=== PATIENT | male | born 1970 | race African-American/Black ===

== ENCOUNTER 2018-09-04 08:35 | Day surgery (SDC) | payer OTHER ==
[~2018-09-04] VITALS: Ht 167.6 cm; Wt 100.0 kg
[~2018-09-04 08:35] MED LIST: FLEXERIL10 MG PO; HCTZ; HCTZ 25MG TAB25 MG PO; LIPITOR 80MG80 MG PO; LOPRESSOR 225 MG/TAB PO; LORTAB 5/500 501 TAB PO; NAPROSYN500 MG PO; PLAVIX 75MG TAB75 MG PO; ZESTRIL40 MG PO
[2018-09-04 09:03] VITALS: BP 128/90; PULSE 80; TEMP 97.8
[2018-09-04] MEDS ORDERED: WELLBUTRIN XL150 MG PO (09:09)
[2018-09-04] MEDS ORDERED: LEXAPRO 5MG5 MG PO (09:10)
[2018-09-04 09:42] VITALS: BP 119/89; PULSE 76; TEMP 98.3
[2018-09-04 09:55] VITALS: BP 127/85; PULSE 79
[2018-09-04 10:10] VITALS: BP 116/85; PULSE 70
[2018-09-04 10:25] VITALS: BP 122/81; PULSE 74
== END 2018-09-04 10:35 | disposition home or self-care (01) ==
LOC: SDCO 08:35
DX: Z12.11 Encounter for screening for malignant neoplasm of colon (principal); E78.00 Pure hypercholesterolemia, unspecified
CPT/HCPCS: J2250; J3010; J7030